=== PATIENT | female | born 1990 ===

== ENCOUNTER 2017-07-05 23:18 | Emergency (ER) | payer OTHER ==
[2017-07-05 23:30] VITALS: BP 111/77; PULSE 79; TEMP 98.2; O2SAT 100
[2017-07-05] MEDS ORDERED: Tetanus/Diphtheria Toxoids 0.5 ml Syringe IM ONE ×2 (23:52→23:57)
--- NOTE | 2017-07-06 00:17 | C.PDOC ---
History Of Present Illness 27yo female, presents to ED for evaluation of a laceration to her left lower leg with a sharp piece of glass which was protruding from a garbage bag. Patient states she is not up to date with her tetanus. She denies any fever, chills, active bleeding, weakness or numbness. She has no other medical complaints. Time Seen by Provider: 07/05/17 23:32 Chief Complaint (Nursing): Abnormal Skin Integrity History Per: Patient History/Exam Limitations: no limitations Onset/Duration Of Symptoms: Mins Current Symptoms Are (Timing): Still Present Location Of Injury: Left: Leg Additional History Per: Patient Past Medical History Reviewed: Historical Data, Nursing Documentation, Vital Signs Vital Signs: Last Vital Signs Temp 98.2 F 07/05/17 23:22 Pulse 79 07/05/17 23:22 Resp 20 07/06/17 00:44 BP 111/77 07/05/17 23:22 Pulse Ox 100 07/06/17 03:32 - Medical History PMH: Asthma Surgical History: No Surg Hx Family History: States: No Known Family Hx - Social History Hx Alcohol Use: Yes Hx Substance Use: No - Immunization History Hx Tetanus Toxoid Vaccination: No Hx Influenza Vaccination: No Hx Pneumococcal Vaccination: No Review Of Systems Except As Marked, All Systems Reviewed And Found Negative. Constitutional: Negative for: Fever, Chills Musculoskeletal: Positive for: Other (laceration to left lower leg) Neurological: Negative for: Weakness, Numbness Physical Exam - Physical Exam Appears: Non-toxic, No Acute Distress Skin: Normal Color, Warm, Dry Head: Atraumatic, Normacephalic Eye(s): bilateral: Normal Inspection Neck: Normal ROM, Supple Chest: Symmetrical Cardiovascular: Rhythm Regular Respiratory: Normal Breath Sounds Extremity: Normal ROM, No Deformity, No Swelling, Other (1cm superficial laceration to distal aspect of left lower extremity- laterally. No active bleeding or foreign body noted.) Neurological/Psych: Oriented x3 ED Course And Treatment O2 Sat by Pulse Oximetry: 100 (RA) Pulse Ox Interpretation: Normal Progress Note: Area cleaned with normal saline and wound approximated with dermabond. Tenivac 0.5ml given. Patient stable for discharge, and instructed to follow up with PCP in 2-3 days. Laceration - Laceration Repair LLE Wound Length (In cm): 1 Description Of Wound: Linear Wound Examination: Irrigated With Saline, No FB With Wound Exploration, No Tendon Injury With Wound Exploration Wound Closure: Steri Strips (3), Skin Glue Wound Complexity: Simple (Well tolerated) Disposition Counseled Patient/Family Regarding: Diagnosis, Need For Followup, Rx Given - Disposition Referrals: [facility] [Outside] Disposition: HOME/ ROUTINE Disposition Time: 00:13 Condition: STABLE Additional Instructions: Keep wound clean and dry Follow up with PMD Return to ER if worse Instructions: Laceration Repair With Glue (DC) Forms: [employer] ([employer]) - Clinical Impression Clinical Impression: Leg laceration - 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 - Scribe Statement The provider has reviewed the documentation as recorded by the Scribe (Celia Aguilar) Provider Attestation: All medical record entries made by the Scribe were at my direction and personally dictated by me. I have reviewed the chart and agree that the record accurately reflects my personal performance of the history, physical exam, medical decision making, and the department course for this patient. I have also personally directed, reviewed, and agree with the discharge instructions and disposition.
[2017-07-06 00:47] VITALS: RESP 20
== END 2017-07-06 00:44 | disposition home or self-care (01) ==
LOC: C.ER 23:18
DX: S81.812A Laceration without foreign body, left lower leg, initial encounter (principal); W25.XXXA Contact with sharp glass, initial encounter